=== PATIENT | female | born 1990 | race African-American/Black ===

== ENCOUNTER 2021-06-10 09:12 | Inpatient (IN) | payer OTHER ==
[2021-06-10 10:02] VITALS: BMI 32.7
[2021-06-10 10:30] LABS: BASO % 0.3 % (0-2.0); HEMATOCRIT 33.7 % (32.4-45.2); HEMOGLOBIN 10.6 GM/dL (10.7-15.3); LYMPH % 21.1 % (8-40); MCH 25.1 pg (25.7-33.7); MCHC 31.4 g/dl (32.0-36.0); MEAN CELL VOLUME 80.1 fl (80-96); MEAN PLT VOLUME 10.1 fl (7.5-11.1); MONO % 7.8 % (3.8-10.2); NEUT % 69.8 % (42.8-82.8); PLATELET COUNT 225 10^3/uL (134-434); RBC 4.21 M/mm3 (3.60-5.2); WHITE BLOOD COUNT 10.1 K/mm3 (4.0-10.0)
[2021-06-10 10:36] LABS: INR 0.86 (0.83-1.09); PROTHROMBIN TIME (PATIENT) 10.6 SEC (9.7-13.0)
[2021-06-10 10:52] LABS: BLOOD UREA NITROGEN 13.8 mg/dL (7-18)
[2021-06-10 10:55] LABS: CREATININE 0.7 mg/dL (0.55-1.3)
[2021-06-10] MEDS: DEXTROSE 5%-LACTATED RINGERS 1,000 ML IV SCH (11:40)
[2021-06-10] MEDS: OXYTOCIN 30 UNITS in 0.9% NS 30 UNIT/500 ML INFUS.BAG IVPB SCH (13:15)
[2021-06-10] MEDS ORDERED: MISOPROSTOL 100 MCG TABLET PV PRN (14:00)
[2021-06-10 14:28] LABS: HIV INTERPRETATION NEGATIVE (NEGATIVE)
[2021-06-10] MEDS ORDERED: CLINDAMYCIN 900 MG PREMIX IVPB 900 MG/50 ML BAG IVPB ONE (18:04)
[2021-06-11] MEDS: OXYTOCIN 30 UNITS in 0.9% NS 30 UNIT/500 ML INFUS.BAG IVPB SCH (13:00)
[2021-06-11] MEDS: DEXTROSE 5%-LACTATED RINGERS 1,000 ML IV SCH ×2 (13:00→22:10)
[2021-06-11] MEDS ORDERED: BUTORPHANOL TARTRATE 2 MG/ML VIAL IVPB ONE (22:11)
[2021-06-11] MEDS ORDERED: BUTORPHANOL TARTRATE 2 MG/ML VIAL ONE (22:18)
[2021-06-12] MEDS ORDERED: PCA PUMP NR ONE (00:09)
[2021-06-12] MEDS ORDERED: FENTANYL/BUPIVACAINE/NS/PF - PCEA - 50 ML DISP.SYRIN EP ONE ×2 (00:09→05:09)
[2021-06-12] MEDS ORDERED: NALOXONE HCL 0.4 MG/ML VIAL IVPUSH PRN (00:14)
[2021-06-12] MEDS ORDERED: LIDOCAINE HCL/EPINEPHRINE/PF 10 ML VIAL ONE (00:16)
[2021-06-12] MEDS ORDERED: SODIUM CHLORIDE 1,000 ML IV STA (00:17)
[2021-06-12] MEDS: FENTANYL/BUPIVACAINE/NS/PF - PCEA - 50 ML DISP.SYRIN EP SCH ×2 (00:30→05:12)
[2021-06-12] MEDS: DEXTROSE 5%-LACTATED RINGERS 1,000 ML IV SCH (01:10)
[2021-06-12] MEDS ORDERED: METOPROLOL TARTRATE 5 MG/5 ML VIAL IVPUSH ONE (07:18)
[2021-06-12] MEDS ORDERED: OXYTOCIN 20 UNITS in 0.9% NS 20 UNIT/1,000 ML INFUS.BAG IV ONE ×3 (07:34→13:15)
[2021-06-12] MEDS ORDERED: LIDOCAINE HCL 1% PRESERVATIVE FREE - 30ML VIAL ONE (07:34)
[2021-06-12 09:27] LABS: CORD BASE EXCESS -7.8 mmol/L (0-2); CORD HCO3 17.5 mmHg (20-29); CORD PCO2 35.9 mmHg (30-78); CORD pH 7.305 (7.14-7.44)
[2021-06-12 10:25] LABS: CORD BASE EXCESS -9.4 mmol/L (0-2); CORD HCO3 17.4 mmHg (20-29); CORD PCO2 40.9 mmHg (30-78); CORD pH 7.246 (7.14-7.44)
[2021-06-12] MEDS ORDERED: metoPROLOL SUCCINATE 25 MG TAB.SR.24H (FP) PO ONE (10:59)
[2021-06-12] MEDS ORDERED: OXYTOCIN 20 UNITS in 0.9% NS 1000 ML INFUS.BAG IV ONE (13:05)
[2021-06-12] MEDS: ACETAMINOPHEN 325 MG TABLET (FP) PO PRN (18:47)
[2021-06-12] MEDS: IBUPROFEN 600 MG TABLET (FP) PO PRN (18:48)
[2021-06-13] MEDS: ACETAMINOPHEN 325 MG TABLET (FP) PO PRN ×2 (14:21→19:54)
[2021-06-13] MEDS: IBUPROFEN 600 MG TABLET (FP) PO PRN ×2 (14:22→19:54)
[2021-06-14] MEDS: IBUPROFEN 600 MG TABLET (FP) PO PRN ×2 (05:56→11:22)
[2021-06-14] MEDS: ACETAMINOPHEN 325 MG TABLET (FP) PO PRN ×2 (05:57→11:21)
[2021-06-14 09:38] VITALS: BP 116/63; PULSE 106; TEMP 97.5
== END 2021-06-14 17:55 | disposition home or self-care (01) | DRG 807 ==
LOC: JLDR 09:12 → J3W 06-12 12:55
PROVIDERS: ADMIT Obstetrics & Gynecology Maternal & Fetal Medicine; ATTEND Obstetrics & Gynecology Maternal & Fetal Medicine
PROC: 3E033VJ Introduction of Other Hormone into Peripheral Vein, Percutaneous Approach (ICD-10-PCS; 2021-06-10)
PROC: 10E0XZZ Delivery of Products of Conception, External Approach (ICD-10-PCS; principal; 2021-06-12)
PROC: 10907ZC Drainage of Amniotic Fluid, Therapeutic from Products of Conception, Via Natural or Artificial Opening (ICD-10-PCS; 2021-06-12)
PROC: 0W8NXZZ Division of Female Perineum, External Approach (ICD-10-PCS; 2021-06-12)
PROC: 10H07YZ Insertion of Other Device into Products of Conception, Via Natural or Artificial Opening (ICD-10-PCS; 2021-06-12)
DX: O30.043 Twin pregnancy, dichorionic/diamniotic, third trimester (principal); Z37.2 Twins, both liveborn; O70.0 First degree perineal laceration during delivery; Z3A.37 37 weeks gestation of pregnancy
CPT/HCPCS: 36415; 36600; 80048; 82803; 85025; 85610; 85730; 86780; 86850; 86900; 86901; 87389; 88307-TC